=== PATIENT | male | born 1970 | race Caucasian/White ===

== ENCOUNTER → 2016-12-17 | Outpatient (CLI) | payer OTHER ==
[~2016-12-17] MED LIST: IBUP1TAB11 PO; OMEP-110 PO
[2016-12-17 10:03] LABS: ASPARTATE AMINO TRANSFERASE 17 U/L (15-37); BLOOD UREA NITROGEN 12 mg/dL (7-18)
[2016-12-17 10:06] LABS: HEMATOCRIT 53.7 % (39.2-51.8); HEMOGLOBIN 18.3 g/dL (13.7-18.0); WHITE BLOOD COUNT 11.9 x10^3/uL (3.4-10)
== END | disposition home or self-care (01) ==
LOC: STAR 08:58
PROVIDERS: ATTEND Surgery
DX: Z01.818 Encounter for other preprocedural examination (principal); R79.1 Abnormal coagulation profile
CPT/HCPCS: 36415; 80053; 85025; 85610; 93005

== ENCOUNTER 2016-12-26 05:43 | Day surgery (SDC) | payer OTHER ==
[~2016-12-26] VITALS: Ht 157.5 cm; Wt 89.4 kg
[2016-12-26 06:20] VITALS: BP 129/90
[2016-12-26] MEDS ORDERED: AMLO2.5T PO (06:24)
[2016-12-26] MEDS ORDERED: METO50TA82 PO (06:24)
[2016-12-26] MEDS ORDERED: LIDOCAINE 1%, 2ML SQ PRN (06:30)
[2016-12-26] MEDS ORDERED: LIDOCAINE 1%, 2ML ONE (06:30)
[2016-12-26] MEDS: LACTATED RINGERS 1,000 ML IV SCH ×2 (06:45→06:46)
[2016-12-26] MEDS ORDERED: EPINEPHRINE 1 MG/ML, 1ML ONE (06:58)
[2016-12-26] MEDS ORDERED: BUPIVACAINE/PF 0.5% ONE (06:58)
[2016-12-26] MEDS ORDERED: KETAMINE 10 MG/ML, 20ML ONE (07:30)
[2016-12-26] MEDS ORDERED: KETOROLAC 30 MG/1 ML ONE (07:30)
[2016-12-26] MEDS ORDERED: ROCURONIUM 10 MG/ML ONE (07:30)
[2016-12-26] MEDS ORDERED: CEFAZOLIN 1,000 MG ONE (07:30)
[2016-12-26] MEDS ORDERED: FENTANYL PF 100 MCG/2ML ONE ×2 (07:30→09:08)
[2016-12-26] MEDS ORDERED: LIDOCAINE PF 2%, 5ML ONE (07:30)
[2016-12-26] MEDS ORDERED: HYDROmorphone 1 MG/ML, 1ML ONE (07:30)
[2016-12-26] MEDS ORDERED: PHENYLEPHRINE 10 MG/ML ONE (07:30)
[2016-12-26] MEDS ORDERED: MIDAZOLAM 1 MG/ML, 2ML ONE (07:30)
[2016-12-26] MEDS ORDERED: DEXAMETHASONE 4 MG/ML, 5ML ONE ×2 (07:30)
[2016-12-26] MEDS ORDERED: PROPOFOL 10 MG/ML, 20ML ONE (07:30)
[2016-12-26] MEDS ORDERED: ONDANSETRON 2MG/ML, 2ML ONE ×2 (07:30)
[2016-12-26] MEDS ORDERED: BUPIVACAINE/PF-EPI 0.5% 1:200K IM ONE (07:45)
[2016-12-26] MEDS ORDERED: OXYcodone 5 MG/5 ML ORAL.SOL UDC PO PRN (08:00)
[2016-12-26] MEDS ORDERED: ACETAMINOPHEN 325 MG TABLET PO PRN (08:00)
[2016-12-26] MEDS ORDERED: HYDROmorphone 1 MG/ML, 1ML IV PRN (08:00)
[2016-12-26] MEDS ORDERED: ONDANSETRON 2MG/ML, 2ML IVPush PRN (08:00)
[2016-12-26] MEDS ORDERED: PROMETHAZINE 25 MG/ML, 1ML IV PRN (08:00)
[2016-12-26] MEDS ORDERED: hydrALAzine 20 MG/ML, 1ML IV PRN (08:00)
[2016-12-26] MEDS ORDERED: LORazepam 2 MG/ML, 1ML IVPush PRN (08:00)
[2016-12-26] MEDS ORDERED: MEPERIDINE/PF 25MG/0.5ML IVPush PRN (08:00)
[2016-12-26] MEDS ORDERED: FENTANYL PF 100 MCG/2ML IV PRN (08:00)
[2016-12-26] MEDS ORDERED: LABETALOL 5MG/ML, 20ML IV PRN (08:00)
[2016-12-26] MEDS ORDERED: ACETAMINOPHEN 650 MG/20.3 ML UDC ONE (08:58)
[2016-12-26] MEDS ORDERED: OXYcodone 5 MG/5 ML ORAL.SOL UDC ONE (08:58)
== END 2016-12-26 11:35 ==
LOC: OUT 05:43
PROVIDERS: ATTEND Surgery
DX: K43.6 Other and unspecified ventral hernia with obstruction, without gangrene (principal); Z98.890 Other specified postprocedural states; Z87.39 Personal history of other diseases of the musculoskeletal system and connective tissue
CPT/HCPCS: 49561; 49568; C1781; J0171; J0690; J1100; J1170; J1885; J2250; J2370; J2405; J2704; J3010; J3490; J7120